=== PATIENT | female | born 1970 | race Caucasian/White ===

== ENCOUNTER → 2016-05-09 | Outpatient (CLI) | payer OTHER ==
[~2016-05-09] VITALS: Ht 170.2 cm; Wt 104.3 kg
[~2016-05-09] MED LIST: ADDERALL10 MG PO; ALEVE220 M2; ASPIRIN E.C.81 M1 PO; EVENING PRIMRO500 MG PO; EXTRA STRENGTH500 M1 PO; FLAGYL500 MG PO; IMITREX100 MG PO; Milk Of Magnesia,MOM PO; NASONEX17 GM NS; PYRIDOXINE,VIT100 MG PO; Tylenol Regular Stre PO; ULTRAM50 MG PO; [UNRECOGNIZED DRUG - OTHER] PO
== END | disposition home or self-care (01) ==
LOC: AMB 08:59
DX: R10.13 Epigastric pain (principal); K29.70 Gastritis, unspecified, without bleeding; D12.4 Benign neoplasm of descending colon; R19.4 Change in bowel habit; R19.7 Diarrhea, unspecified; E78.5 Hyperlipidemia, unspecified; I34.1 Nonrheumatic mitral (valve) prolapse; E04.2 Nontoxic multinodular goiter; E66.9 Obesity, unspecified; E55.9 Vitamin D deficiency, unspecified; Z82.0 Family history of epilepsy and other diseases of the nervous system; Z80.41 Family history of malignant neoplasm of ovary; Z83.3 Family history of diabetes mellitus; Z82.49 Family history of ischemic heart disease and other diseases of the circulatory system; Z88.5 Allergy status to narcotic agent
CPT/HCPCS: 88305; 88342 TC; J3010

== ENCOUNTER 2016-11-27 21:52 | Observation (INO) | payer OTHER ==
[~2016-11-27] VITALS: Ht 170.2 cm; Wt 110.6 kg
[~2016-11-27 21:52] MED LIST changes: +NASONEX17 GM BOTH NARES; -NASONEX17 GM NS
[2016-11-27 22:57] LABS: BASOPHIL COUNT 0.1 K/uL (0-0.1); EOSINOPHIL (%) 4.5 % (0-5); EOSINOPHIL COUNT 0.3 K/uL (0-0.3); IMMATURE GRANULOCYTE (%) 0.3 % (0.0-0.7); INSTRUMENT ABS NEUTROPHIL CT 2.8 K/uL; LYMPHOCYTE COUNT 3.6 K/uL (1.0-2.8); MCH 29.8 PG (29.0-34.0); MCHC 33.6 G/DL (30.0-36.0); MCV 88.8 FL (83-99); MEAN PLAT.VOLUME 9.9 uM^3 (9.5-12.4); MONOCYTE (%) 7.8 % (3-12); MONOCYTE COUNT 0.6 K/uL (0-0.8); NEUTROPHIL (%) 37.6 % (45-76); NEUTROPHIL COUNT 2.8 K/uL (1.8-6.4); PLATELET COUNT 314 K/uL (156-360); RBC DIS.WIDTH-CV 12.4 % (11.8-14.6); RBC DIS.WIDTH-SD 40.7 % (39-53); RED BLOOD COUNT 4.39 M/uL (3.80-5.20); WHITE BLOOD COUNT 7.3 K/uL (4.1-10.2)
[2016-11-27 23:06] LABS: INTER. NORMALIZED RATIO 0.9; PROTHROMBIN TIME 9.7 SEC (10.2-12.9)
[2016-11-27 23:07] LABS: AMYLASE 54 IU/L (1-118); CHLORIDE 103 mEq/L (99-109); POTASSIUM 3.9 mEq/L (3.7-5.4); SODIUM 138 mEq/L (136-147)
[2016-11-27 23:09] LABS: GLUCOSE 107 mg/dL (70-99); PTT 29.8 SEC (25-37)
[2016-11-27 23:10] LABS: ANION GAP 13 MEQ/L (2-14)
[2016-11-27 23:12] LABS: SERUM ETHYL ALCOHOL < 10 mg/dL
[2016-11-27 23:13] LABS: GFR ESTIMATE (CALCULATED) > 59 mL/min/
[2016-11-27 23:14] LABS: UREA NITROGEN (BUN) 16 mg/dL (9-23)
[2016-11-27] MEDS ORDERED: ERGOCALCIF50000 UNIT PO (23:14)
[2016-11-27] MEDS ORDERED: MONTELUKAST SOD10 MG PO (23:14)
[2016-11-27 23:16] LABS: LIPASE 28 U/L (1.0-51.0)
[2016-11-27 23:20] LABS: TROP-I INTERPRETATION NEGATIVE; TROPONIN-I < 0.01 ng/mL (0.0-0.30)
[2016-11-27 23:23] LABS: QUANTITATIVE HCG < 4.0 MIU/ML
[2016-11-27 23:51] LABS: SAMPLE HEMOLYSIS CHECK 0; SAMPLE ICTERIC CHECK 0; SAMPLE LIPEMIA CHECK 0
[2016-11-27 23:56] LABS: HDL CHOLESTEROL 44 MG/DL (Desirable>=50); LDL CHOLESTEROL 202 mg/dL (Desirable<100); NON-HDL CHOLESTEROL 251 mg/dL (Desirable<160); TOTAL CHOLESTEROL 295 mg/dL (Desirable<200); TRIGLYCERIDES 246 MG/DL (Normal: <150)
[2016-11-28 01:45] LABS: ADD MIUA? NO; BILIRUBIN NEGATIVE; BLOOD NEGATIVE; COLOR STRAW ((YELLOW)); GLUCOSE (STRIP) NEGATIVE; KETONES NEGATIVE; LEUKOCYTES NEGATIVE; NITRITE NEGATIVE; PROTEIN (STRIP) NEGATIVE; SPECIFIC GRAVITY 1.027 (1.000-1.030); UROBILINOGEN 0.2 MG/DL (0.2-1.0)
[2016-11-28 01:48] LABS: UCUL ADDED? NO
[2016-11-28 02:03] LABS: AMPHETAMINE NEGATIVE (500 ng/mL); BARBITURATES NEGATIVE (200 ng/mL); BENZODIAZEPINES NEGATIVE (150 ng/mL); COCAINE NEGATIVE (150 ng/mL); INTERNAL CONTROLS VALID? YES; METHADONE NEGATIVE (200 ng/mL); METHAMPHETAMINE NEGATIVE (500 ng/mL); OPIATES (MORPHINE) NEGATIVE (100 ng/mL); OXYCODONE NEGATIVE (100 ng/mL); PHENCYCLIDINE NEGATIVE (25 ng/mL); PROPOXYPHENE NEGATIVE (300 ng/mL); THC CANNABINOIDS NEGATIVE (50 ng/mL); TRICYCLIC ANTIDEPRESSANTS NEGATIVE (300 ng/mL)
[2016-11-28 03:25] VITALS: BP 144/60
[2016-11-28 07:45] LABS: Estimated Average Glucose 123 mg/dL (70-123); HEMOGLOBIN A1c (GLYCOHEMOGLOB) 5.9 % HGB (Below 5.7)
[2016-11-28 09:00] VITALS: BP 117/58
[2016-11-28 11:21] VITALS: BP 108/67
[2016-11-28 11:24] VITALS: BP 142/78
[2016-11-28] MEDS ORDERED: ASPIR-LOW81 MG PO (12:51)
[2016-11-28] MEDS ORDERED: PRAVASTATIN SOD40 MG PO (12:52)
== END 2016-11-28 13:44 | disposition home or self-care (01) ==
LOC: EME 21:52 → EDOF 11-28 02:13 → ENRESERV 11-28 02:16 → 5WEST 11-28 03:06
PROVIDERS: Emergency Medicine
DX: R20.2 Paresthesia of skin (principal); R29.810 Facial weakness; G43.909 Migraine, unspecified, not intractable, without status migrainosus; R47.81 Slurred speech; E78.5 Hyperlipidemia, unspecified; K21.9 Gastro-esophageal reflux disease without esophagitis; F41.9 Anxiety disorder, unspecified; F32.9 Major depressive disorder, single episode, unspecified; G89.29 Other chronic pain; Z82.49 Family history of ischemic heart disease and other diseases of the circulatory system; Z80.41 Family history of malignant neoplasm of ovary; Z82.0 Family history of epilepsy and other diseases of the nervous system; Z90.49 Acquired absence of other specified parts of digestive tract; Z90.710 Acquired absence of both cervix and uterus; Z88.8 Allergy status to other drugs, medicaments and biological substances; E66.9 Obesity, unspecified; Z68.38 Body mass index [BMI] 38.0-38.9, adult; Z88.5 Allergy status to narcotic agent
CPT/HCPCS: 70450; 70496; 70498; 70551; 80048; 80048 91; 80061; 81003; 82150; 83036; 83690; 84484; 84702; 85025; 85610; 85730; 86850; 86900; 86901; 93005; 99281; 99285; G0378; G0480; J7030